=== PATIENT | female | born 1945 | race American Indian/Alaskan Native ===

== ENCOUNTER 2019-06-11 12:25 | Emergency (ER) | payer MEDICARE ==
[2019-06-11 12:43] VITALS: BP 151/79
--- NOTE | 2019-06-11 13:46 | Emergency Department Report ---
ED General Adult HPI - General Chief complaint: Anxiety Stated complaint: ANXIETY ATTACK Time Seen by Provider: 06/11/19 13:34 Source: EMS Mode of arrival: Ambulatory Limitations: No Limitations - History of Present Illness Initial comments: 74-year-old Afro-[place]ian female with past medical history depression taking Lexapro and history of diabetes with oximetry department under the direction of her primary care provider Dr. Caldera. All at her office for routine evaluation she was getting her blood drawn and then the doctor who does not normally during blood was doing so due to a lack of staffing. The process she was fishing around and attempt to draw blood and the patient began to grow lightheaded and states he felt some slight for about 10-12 minutes before returning to normal. Patient reports that her physician is Dr. Mancuso the emergency department evaluation due to history history of anxiety if she is having an upcoming procedure next week in the form of an EGD which she did state she had a little bit of nervousness about. Patient states he feels 100% normal at baseline and does not know why she had, she denies any current chest pain, palpitations, headaches, fever, chills, sweats, abdominal pain, diarrhea, nausea, vomiting. Radiation: non-radiation Severity scale (0 -10): 0 Consistency: now resolved Improves with: none Worsens with: none Associated Symptoms: denies other symptoms Treatments Prior to Arrival: none ED Review of Systems ROS: Stated complaint: ANXIETY ATTACK Other details as noted in HPI Comment: All other systems reviewed and negative ED Past Medical Hx - Past Medical History Previous Medical History?: Yes Hx Hypertension: Yes Hx Diabetes: Yes - Surgical History Past Surgical History?: No - Social History Smoking Status: Never Smoker Substance Use Type: None ED Physical Exam - General Limitations: No Limitations General appearance: alert, in no apparent distress - Head Head exam: Present: atraumatic, normocephalic - Eye Eye exam: Present: normal appearance, PERRL Pupils: Present: normal accommodation - ENT ENT exam: Present: mucous membranes moist - Neck Neck exam: Present: normal inspection. Absent: meningismus, thyromegaly - Respiratory Respiratory exam: Present: normal lung sounds bilaterally. Absent: respiratory distress, wheezes, rales, chest wall tenderness - Cardiovascular Cardiovascular Exam: Present: regular rate, normal rhythm. Absent: irregular rhythm, systolic murmur, diastolic murmur, rubs, gallop - GI/Abdominal GI/Abdominal exam: Present: soft, normal bowel sounds - Extremities Exam Extremities exam: Present: normal inspection - Back Exam Back exam: Present: normal inspection - Neurological Exam Neurological exam: Present: alert, oriented X3 - Psychiatric Psychiatric exam: Present: normal affect, normal mood - Skin Skin exam: Present: warm, dry, intact, normal color. Absent: rash ED Course Vital Signs 06/11/19 12:40 Temperature 98.1 F Pulse Rate 78 Respiratory 16 Rate Blood Pressure 151/79 O2 Sat by Pulse 100 Oximetry ED Medical Decision Making - Medical Decision Making 74 [place]ian female currently asymptomatic presents to the ED for evaluation. Likely vasovagal response to noxious stimuli which is currently resolved. She reports no chest pain, palpitations, nausea vomiting, fever, chills, sweats, presyncope since in the emergency department. Her vital signs are stable and s he is ambulatory under her own power without any shortness of breath or STABLE GAIT. STATES SHE FEELS NORMAL DISCUSSED THE PLAN OF CARE WAS SHE AGREES WITH FEELS COMFORTABLE BEING BEING DISCHARGED. SHE DOES NOT FEEL SHE HAS ANY CURRENT COMPLICATIONS OR ISSUES BUT SHE IS STILL A LITTLE BIT WORRIED ABOUT THE EGD PROVIDED THAT HER MOM WHILE WHILE HAVING AN EGD DONE SOME YEARS AGO Critical care attestation.: If time is entered above; I have spent that time in minutes in the direct care of this critically ill patient, excluding procedure time. ED Disposition Clinical Impression: Normal exam, Anxiety Disposition: DC-01 TO HOME OR SELFCARE Is pt being admited?: No Does the pt Need Aspirin: No Condition: Stable Instructions: Anxiety (ED) Additional Instructions: Overview Vasovagal syncope (also called neurocardiogenic syncope) is a temporary loss of consciousness caused by a neurological reflex that produces either sudden dilation of the blood vessels in the legs, or a very slow heart rate (bradycardia), or both. Vasovagal syncope accounts for more than half of all episodes of syncope. While doctors often refer to it as a "simple fainting spell," the mechanism of vasovagal syncope actually is not all that simple. And misunderstanding how vasovagal syncope works can lead to problems in making the correct diagnosis or in choosing adequate treatment. Causes Vasovagal syncope occurs when something triggers the vasovagal reflex, causing the blood vessels to suddenly dilate. Dilation of the blood vessels causes a significant proportion of the blood volume to pool in the legs. This pooling is often accompanied by a slowing of the heart rate. As a result, the blood pressure will suddenly drop. If the drop in pressure is enough to edil the brain of oxygen, fainting occurs. In most people with vasovagal syncope, the dilation of blood vessels appears to be the predominant factor that causes loss of consciousness. In some people, however, the slowing of the heart rate plays a major role. Common triggers of vasovagal syncope include: Sudden, severe pain Having your blood drawn Being exposed to a traumatic sight or event Extremely difficult urination or defecation A severe coughing spell Hyperventilation Standing motionless for long periods of time Overexerting yourself in hot weather Excessive alcohol or substance use Navigating Heart Failure Heart failure can drastically disrupt your life. But, by paying attention to your symptoms and working carefully with your doctor, you can still live productively. Learn more If a fainting episode follows any of these events, vasovagal syncope is almost certainly the cause. Symptoms While the loss of consciousness with vasovagal syncope can be quite sudden, more characteristically it is preceded by a few seconds or a few minutes of warning symptoms. These symptoms are sometimes referred to as a prodrome of syncope. Those that occur after you are revived are called "postdromal." Prodromal Symptoms These prodromal symptoms of syncope often include: Lightheadedness Ringing or buzzing in the ears Visual disturbances, such as shimmering vision or tunnel vision Sudden sweating. Sudden nausea These prodromal symptoms are followed by a sensation of "graying out," then finally by loss of consciousness. The time between the onset of prodromal symptoms and actually passing out may be a few minutes, or just a second or two. If you feel like youre going to faint, you may be able to abort the episode by lying down with your legs elevated or sitting in a chair with your head between your knees. Wait until you feel better before trying to stand. Syncope Characteristics The syncope itself also has several characteristic features: Vasovagal syncope almost always occurs when the victim is standing, or sitting upright (when blood pooling in the legs can occur), and it virtually never happens while lying down. People who have vasovagal syncope usually regain consciousness after a few seconds, once they have fallen (or, if they're fadi, are helped) to the ground. This is because once on the ground, gravity no longer causes the blood to pool in the legs and the blood pressure improves almost immediately. On the other hand, if the victim is held upright by a well-meaning bystander, the unconsciousness can become very prolonged. This is a potentially dangerous s ituation because as lo Referrals: DIANNE FLOYD NP-C [Referring] - 3-5 Days
== END 2019-06-11 15:27 | disposition home or self-care (01) ==
LOC: ED 12:25
DX: F41.9 Anxiety disorder, unspecified (principal); R42 Dizziness and giddiness; I10 Essential (primary) hypertension; E11.9 Type 2 diabetes mellitus without complications
CPT/HCPCS: 82962

== ENCOUNTER 2021-02-17 11:53 | Observation (INO) | payer MEDICARE ==
[2021-02-17] MEDS ORDERED: DEXTROSE 50% IN WATER (25GM) 50 ML SYRINGE IV ONE (12:21)
--- NOTE | 2021-02-17 12:25 | Emergency Department Report ---
HPI - General Chief Complaint: Hypoglycemia Time Seen by Provider: 02/17/21 12:09 - HPI HPI: 75-year-old female with history of hypertension, hyperlipidemia, CKD, and DM2 on insulin brought in by EMS after she was found to be severely hypoglycemic at home with a blood sugar of 20. The patient's daughter is at the bedside and provides most of the history. She states that for the last 4 days the patient's blood sugar has been running on the low side, in the 60s to 70s. She takes NovoLog and Levemir at night. This morning, however, the patient's blood sugar was measured at 20 and she was severely diaphoretic and confused. She was given some orange juice and part of a banana but 911 was called and her blood sugar per EMS was found to be 32. Other than the low blood sugar, the patient states that her only physical symptom has been generalized weakness and urinary frequency. According to her daughter, she is much less confused and almost at her baseline mental status at this point. Blood sugar measured here in the emergency department was 44. ED Past Medical Hx - Past Medical History Previous Medical History?: Yes Hx Hypertension: Yes Hx Diabetes: Yes - Social History Smoking Status: Never Smoker Substance Use Type: None - Medications Home Medications: Home Medications Medication Instructions Recorded Confirmed Last Taken Type Aspirin [Aspirin BABY CHEW TAB] 81 mg PO QDAY 02/17/21 02/17/21 Unknown History AtorvaSTATin [Lipitor] 40 mg PO QHS 02/17/21 02/17/21 Unknown History Empagliflozin [Jardiance] 10 mg PO QDAY 02/17/21 02/17/21 Unknown History Escitalopram [Lexapro Oral Liqd] 10 mg PO QDAY 02/17/21 02/17/21 Unknown History Ferrous Sulfate [Iron 325 MG] 325 mg PO QDAY 02/17/21 02/17/21 Unknown History Gabapentin [Neurontin] 300 mg PO Q8HR 02/17/21 02/17/21 Unknown History Losartan/Hydrochlorothiazide 1 each PO QDAY 02/17/21 02/17/21 Unknown History [Losartan-Hctz 100-25 mg Tab] Omeprazole 40 mg PO QDAY 02/17/21 02/17/21 Unknown History ED Review of Systems ROS: Stated complaint: LOW BLOOD SUGAR Other details as noted in HPI Constitutional: weakness. denies: chills, fever Eyes: denies: eye pain, vision change ENT: denies: throat pain, congestion Respiratory: denies: cough, shortness of breath Cardiovascular: denies: chest pain, palpitations Endocrine: excessive sweating, increased urine Gastrointestinal: denies: abdominal pain, nausea, vomiting Genitourinary: frequency. denies: dysuria Musculoskeletal: denies: back pain, myalgia Skin: denies: rash Neurological: confusion. denies: headache, weakness, numbness Psychiatric: denies: auditory hallucinations, visual hallucinations Physical Exam - Physical Exam Vital Signs: Vital Signs 02/17/21 12:02 Temperature 97.6 F Pulse Rate 72 Respiratory 18 Rate Blood Pressure 129/70 [Right] O2 Sat by Pulse 98 Oximetry Physical Exam: GENERAL: Well developed and well nourished. No acute distress. Appears slightly confused but is alert and oriented HEENT: Normocephalic. No obvious signs of trauma. dry mucous membranes. EYES: Extraocular movements are intact. Pupils are equal round and reactive to light bilaterally NECK: Supple. Trachea is midline. LUNGS: Nonlabored breathing. Equal chest rise bilaterally. Clear to auscultation bilaterally. HEART/CARDIOVASCULAR: Regular rate and rhythm. No murmurs or rubs. VASCULAR: 2+ peripheral pulses. Cap refill < 2 seconds ABDOMEN: Abdomen is soft and nondistended. There is no significant tenderness, guarding or rebound. SKIN: Skin is warm and dry NEURO: Patient is awake, alert, and oriented. manager operational II-XII grossly intact. No focal deficits. Normal motor and sensory exam throughout. Normal speech. MUSCULOSKELETAL: No obvious deformities. No significant tenderness. Normal ROM throughout. BACK/SPINE: No costovertebral angle tenderness. ED Course Vital Signs 02/17/21 12:02 Temperature 97.6 F Pulse Rate 72 Respiratory 18 Rate Blood Pressure 129/70 [Right] O2 Sat by Pulse 98 Oximetry ED Medical Decision Making - Lab Data Result diagrams: 02/17/21 12:30 02/17/21 12:30 Vital Signs 02/17/21 02/17/21 02/17/21 12:02 12:58 13:00 Temperature 97.6 F Pulse Rate 72 64 61 Respiratory 18 18 17 Rate Blood Pressure Blood Pressure 129/70 [Right] O2 Sat by Pulse 98 97 96 Oximetry 02/17/21 02/17/21 13:16 15:27 Temperature Pulse Rate 61 61 Respiratory 15 18 Rate Blood Pressure 96/72 Blood Pressure 102/66 [Right] O2 Sat by Pulse 98 100 Oximetry Labs 02/17/21 02/17/21 02/17/21 11:59 12:13 12:30 WBC 7.4 RBC 3.95 Hgb 11.4 Hct 35.7 MCV 90 MCH 29 MCHC 32 RDW 15.5 H Plt Count 207 Lymph % (Auto) 13.0 L Vance % (Auto) 7.4 H Eos % (Auto) 1.4 Baso % (Auto) 0.3 Lymph # (Auto) 1.0 L Vance # (Auto) 0.5 Eos # (Auto) 0.1 Baso # (Auto) 0.0 Seg Neutrophils % 77.9 H Seg Neutrophils # 5.7 Sodium Potassium Chloride Carbon Dioxide Anion Gap BUN Creatinine Estimated GFR BUN/Creatinine Ratio Glucose POC Glucose 32 L 44 L Calcium Magnesium Total Bilirubin Direct Bilirubin Indirect Bilirubin AST ALT Alkaline Phosphatase Total Protein Albumin Albumin/Globulin Ratio Urine Color Urine Turbidity Urine pH Ur Specific [place] Urine Protein Urine Glucose (UA) Urine Ketones Urine Blood Urine Nitrite Urine Bilirubin Urine Urobilinogen Ur Leukocyte Esterase Urine WBC (Auto) Urine RBC (Auto) U Epithel Cells (Auto) Urine Mucus 02/17/21 02/17/21 02/17/21 12:30 13:33 15:16 WBC RBC Hgb Hct MCV MCH MCHC RDW Plt Count Lymph % (Auto) Vance % (Auto) Eos % (Auto) Baso % (Auto) Lymph # (Auto) Vance # (Auto) Eos # (Auto) Baso # (Auto) Seg Neutrophils % Seg Neutrophils # Sodium 144 Potassium 5.4 H Chloride 106.9 Carbon Dioxide 24 Anion Gap 19 BUN 54 H Creatinine 2.3 H Estimated GFR 25 BUN/Creatinine Ratio 23 Glucose 68 POC Glucose 140 H 174 H Calcium 9.5 Magnesium 2.20 Total Bilirubin 0.30 Direct Bilirubin < 0.2 Indirect Bilirubin 0.1 AST 21 ALT 16 Alkaline Phosphatase 71 Total Protein 7.4 Albumin 4.1 Albumin/Globulin Ratio 1.2 Urine Color Urine Turbidity Urine pH Ur Specific [place] Urine Protein Urine Glucose (UA) Urine Ketones Urine Blood Urine Nitrite Urine Bilirubin Urine Urobilinogen Ur Leukocyte Esterase Urine WBC (Auto) Urine RBC (Auto) U Epithel Cells (Auto) Urine Mucus 02/17/21 Unknown WBC RBC Hgb Hct MCV MCH MCHC RDW Plt Count Lymph % (Auto) Vance % (Auto) Eos % (Auto) Baso % (Auto) Lymph # (Auto) Vance # (Auto) Eos # (Auto) Baso # (Auto) Seg Neutrophils % Seg Neutrophils # Sodium Potassium Chloride Carbon Dioxide Anion Gap BUN Creatinine Estimated GFR BUN/Creatinine Ratio Glucose POC Glucose Calcium Magnesium Total Bilirubin Direct Bilirubin Indirect Bilirubin AST ALT Alkaline Phosphatase Total Protein Albumin Albumin/Globulin Ratio Urine Color Straw Urine Turbidity Clear Urine pH 5.0 Ur Specific [place] 1.008 Urine Protein <15 mg/dl Urine Glucose (UA) >=500 Urine Ketones Neg Urine Blood Neg Urine Nitrite Neg Urine Bilirubin Neg Urine Urobilinogen < 2.0 Ur Leukocyte Esterase Neg Urine WBC (Auto) 2.0 Urine RBC (Auto) 2.0 U Epithel Cells (Auto) 1.0 Urine Mucus Few - EKG Data -: EKG Interpreted by Ri - EKG Data 02/17/21 17:13 Normal sinus rhythm. Normal axis. Normal intervals. No ectopy. No si gnificant ST segment or T wave abnormalities. - Radiology Data CHEST 1 VIEW 02/17/2021 12:24 PM INDICATION / CLINICAL INFORMATION: hypoglycemia. COMPARISON: None available. FINDINGS: SUPPORT DEVICES: None. HEART / MEDIASTINUM: No significant abnormality. LUNGS / PLEURA: Low lung volumes with crowding of the bronchovascular markings. No convincing evidence of acute pulmonary parenchymal or pleural abnormality. No pneumothorax. ADDITIONAL FINDINGS: No significant additional findings. IMPRESSION: 1. Low lung volumes without acute findings. Signer Name: Cuco Quintana MD Signed: 02/17/2021 1:44 PM Workstation Name: [id number] - Medical Decision Making 75-year-old female with history of CKD, hypertension, and DM2 on insulin brought in for severe hypoglycemia. Patient's blood sugar was 20 at home with diaphoresis and confusion. It was 32 for EMS. Patient has been having low blood sugars in the 60s to 70s for the past few days. She is also felt weak and had some urinary frequency. She takes 100 units 3 times daily of NovoLog and Levemir at night. Her blood sugar here in the emergency department is 44. We will give 1 amp of D50 and if hypoglycemia is persistent will initiate D5 or D10 drip at that time. We will send a full set of labs and chest x-ray and continue to monitor blood sugar closely. Labs reviewed and reveal no significant leukocytosis or anemia. Patient's potassium is slightly elevated at 5.4. Her most recent Accu-Chek was 140. We will continue to monitor closely and follow-up pending studies. Patient's urinalysis shows no evidence of infection. There is greater than 500 of glucose in her urine which is consistent with the patient taking Jardiance. There is no anion gap to suggest euglycemic/hypoglycemic DKA. On repeat assessment again at 3:29 PM, the patient is resting comfortably in the bed. She states that she feels much better than she did earlier. Her most recent blood sugar was 174 at 3:20 PM. Nonetheless, given the history of ongoing hypoglycemia for the last few days and use of long-acting insulin, I discussed the case with the on-call hospitalist, Dr. Rojas who will admit the patient for further monitoring and management. All of this was discussed with the patient who expressed understanding and agreement with this plan of care. Critical care attestation.: If time is entered above; I have spent that time in minutes in the direct care of this critically ill patient, excluding procedure time. ED Disposition Clinical Impression: Hypoglycemia associated with type 2 diabetes mellitus, Chronic kidney disease (CKD), Altered mental state Disposition: DC-09 OP ADMIT IP TO THIS HOSP Is pt being admited?: Yes Condition: Stable Instructions: Diabetes Mellitus Type 2 in Adults (ED) Referrals: PRIMARY CARE, [Primary Care Provider] - 3-5 Days
[2021-02-17 12:49] LABS: Basophils % (Auto) 0.3 % (0.0-1.8); Eosinophils # (Auto) 0.1 K/mm3 (0.0-0.4); Eosinophils % (Auto) 1.4 % (0.0-4.3); Hematocrit 35.7 % (30.3-42.9); Hemoglobin 11.4 gm/dl (10.1-14.3); Mean Corpuscular HGB Conc 32 % (30-34); Mean Corpuscular Volume 90 fl (79-97); Monocytes # (Auto) 0.5 K/mm3 (0.0-0.8); Monocytes % (Auto) 7.4 % (0.0-7.3); Platelet Count 207 K/mm3 (140-440); Red Blood Count 3.95 M/mm3 (3.65-5.03); Red Cell Distribution Width 15.5 % (13.2-15.2)
[2021-02-17] MEDS ORDERED: D5W/0.45% NACL 1,000 ML IV SCH (13:00)
[2021-02-17 13:17] LABS: Alanine Aminotransferase 16 units/L (7-56); Albumin 4.1 g/dL (3.9-5); BUN/Creatinine Ratio 23; Bilirubin,Direct < 0.2 mg/dL (0-0.2); Blood Urea Nitrogen 54 mg/dL (7-17); Calcium 9.5 mg/dL (8.4-10.2); Hemolysis Index 2
[2021-02-17 14:05] LABS: Bilirubin,Urine NEG (Negative); Blood,Urine NEG (Negative); Color,Urine Straw (Yellow); Mucus,Urine FEW /HPF; Protein,Urine <15 mg/dL mg/dL (Negative); Urobilinogen,Urine < 2.0 mg/dL (<2.0)
--- NOTE | 2021-02-17 14:49 | XRay Report ---
CHEST 1 VIEW 02/17/2021 12:24 PM INDICATION / CLINICAL INFORMATION: hypoglycemia. COMPARISON: None available. FINDINGS: SUPPORT DEVICES: None. HEART / MEDIASTINUM: No significant abnormality. LUNGS / PLEURA: Low lung volumes with crowding of the bronchovascular markings. No convincing evidenc e of acute pulmonary parenchymal or pleural abnormality. No pneumothorax. ADDITIONAL FINDINGS: No significant additional findings. IMPRESSION: 1. Low lung volumes without acute findings. Signer Name: Cuco Quintana MD Signed: 02/17/2021 2:44 PM Workstation Name: [id number]
[2021-02-17] MEDS ORDERED: ACETAMINOPHEN 325 MG TAB PO PRN (15:26)
[2021-02-17] MEDS ORDERED: ONDANSETRON 4 MG/2 ML INJ IV PRN (15:26)
--- NOTE | 2021-02-17 15:26 | History and Physical Report ---
History of Present Illness Chief complaint: She is confused and her blood glucose is really low History of present illness: 75 YO Female with HTN, HLD, DM, CKD, Vascular Dementia, Cerebral Atherosclerosis presents to ED for evaluation. Pt has diminished cognition and is unable to provide detailed history at the time of the evaluation. Pt daughter is at bedside and provides history. Pt daughter states that the patient was found to be confused today. The patient was found to have a serum glucose in the 20s and was subsequently transported to [facility] via private vehicle for further care and evaluation of the aforementioned symptoms. The patient was seen and evaluated in the emergency department. All lab and imaging studies reviewed. The patient was found to have metabolic encephalopathy, volume depletion, SHERITA with ATN, as well as persistent hypoglycemia. The patient was treated with dextrose and IV fluid resuscitation and subsequently placed in observation status and admitted to the medical floor due to increased risk of worsening symptoms. No further history is obtainable. The patient has diminished cognition but has a positive gag reflex and is able to protect her airway without difficulty. No prior admission for review. All medication listed at time of admission has been reconciled. Advanced care planning conducted in ED. Past History Past Medical History: diabetes, hypertension, hyperlipidemia, renal failure Past Surgical History: No surgical history, Other (reviewed) Social history: . denies: smoking, alcohol abuse, prescription drug abuse Family history: diabetes, hypertension Medications and Allergies Allergies Allergy/AdvReac Type Severity Reaction Status Date / Time No Known Allergies Allergy Unverified 02/17/21 12:01 Home Medications Medication Instructions Recorded Confirmed Last Taken Type Aspirin [Aspirin BABY CHEW TAB] 81 mg PO QDAY 02/17/21 02/17/21 Unknown History AtorvaSTATin [Lipitor] 40 mg PO QHS 02/17/21 02/17/21 Unknown History Empagliflozin [Jardiance] 10 mg PO QDAY 02/17/21 02/17/21 Unknown History Escitalopram [Lexapro Oral Liqd] 10 mg PO QDAY 02/17/21 02/17/21 Unknown History Ferrous Sulfate [Iron 325 MG] 325 mg PO QDAY 02/17/21 02/17/21 Unknown History Gabapentin [Neurontin] 300 mg PO Q8HR 02/17/21 02/17/21 Unknown History Losartan/Hydrochlorothiazide 1 each PO QDAY 02/17/21 02/17/21 Unknown History [Losartan-Hctz 100-25 mg Tab] Omeprazole 40 mg PO QDAY 02/17/21 02/17/21 Unknown History Active Meds: Active Medications Dextrose/Sodium Chloride (D5/0.45ns) 1,000 mls @ 250 mls/hr IV DIRECT VIDHI Review of Systems Constitutional: no weight loss, no weight gain Ears, nose, mouth and throat: no ear pain, no ear discharge, no decreased hearing, no nose pain, no nasal congestion Breasts: no change in shape, no swelling, no mass Cardiovascular: no chest pain, no palpitations, no rapid/irregular heart beat, no edema, no syncope Respiratory: no cough, no cough with sputum, no hemoptysis, no shortness of breath, no dyspnea on exertion Gastrointestinal: no nausea, no diarrhea, no change in bowel habits, no hematemesis Genitourinary Female: no pelvic pain, no flank pain, no dysuria, no urinary frequency, no urgency Rectal: no pain, no incontinence, no bleeding Musculoskeletal: no neck stiffness, no shooting arm pain, no arm numbness/tingli ng, no low back pain, no leg numbness/tingling Integumentary: no rash, no pruritis, no redness, no sores, no wounds, no jaundice Neurological: no head injury, no transient paralysis, no paralysis, no weakness, no seizures Psychiatric: no anxiety, no sleep disturbances, no insomnia, no change in appetite, no change in libido Endocrine: no cold intolerance, no polyphagia, no excessive thirst, no kalie ydipsia, no polyuria, no nocturia Hematologic/Lymphatic: no easy bruising, no lymphadenopathy Allergic/Immunologic: no allergic rhinitis, no wheezing, no persistent infections, no angioedema Exam - Constitutional Vitals: Temp Pulse Resp BP Pulse Ox 97.6 F 72 18 129/70 98 02/17/21 12:02 02/17/21 12:02 02/17/21 12:02 02/17/21 12:02 02/17/21 12:02 General appearance: Present: mild distress - EENT Eyes: Present: PERRL ENT: clear oral mucosa, hearing decreased - Neck Neck: Present: supple, normal ROM - Respiratory Respiratory effort: normal Respiratory: bilateral: CTA - Cardiovascular Heart Sounds: Present: S1 & S2. Absent: rub, click - Extremities Extremities: pulses symmetrical, No edema Peripheral Pulses: within normal limits - Abdominal General gastrointestinal: Present: soft, non-tender, non-distended, normal bowel sounds Female genitourinary: Present: normal - Integumentary Integumentary: Present: clear, warm, dry - Musculoskeletal Musculoskeletal: gait normal, strength equal bilaterally - Psychiatric Psychiatric: appropriate mood/affect, intact judgment & insight - Neurologic Neurologic: CNII-XII intact, moves all extremities Results - Labs CBC & Chem 7: 02/17/21 12:30 02/17/21 12:30 Labs: Abnormal lab results 02/17/21 02/17/21 02/17/21 Range/Units 11:59 12:13 12:30 RDW 15.5 H (13.2-15.2) % Lymph % (Auto) 13.0 L (13.4-35.0) % [place] % (Auto) 7.4 H (0.0-7.3) % Lymph # (Auto) 1.0 L (1.2-5.4) K/mm3 Seg Neutrophils % 77.9 H (40.0-70.0) % Potassium (3.6-5.0) mmol/L BUN (7-17) mg/dL Creatinine (0.6-1.2) mg/dL POC Glucose 32 L 44 L (70-105) mg/dL 02/17/21 02/17/21 02/17/21 Range/Units 12:30 13:33 15:16 RDW (13.2-15.2) % Lymph % (Auto) (13.4-35.0) % [place] % (Auto) (0.0-7.3) % Lymph # (Auto) (1.2-5.4) K/mm3 Seg Neutrophils % (40.0-70.0) % Potassium 5.4 H (3.6-5.0) mmol/L BUN 54 H (7-17) mg/dL Creatinine 2.3 H (0.6-1.2) mg/dL POC Glucose 140 H 174 H (70-105) mg/dL Assessment and Plan - Patient Problems (1) Metabolic encephalopathy Current Visit: Yes Status: Acute Plan to address problem: IV fluid resuscitation therapy, neuro check, supportive care. (2) Hypoglycemia Current Visit: Yes Status: Acute Plan to address problem: Dextrose administration, Accu-Chek, hypoglycemia protocol (3) Insulin overdose Current Visit: Yes Status: Acute Qualifiers: Encounter type: initial encounter Plan to address problem: Hypoglycemia protocol, Hold insulin, low dose sliding scale insulin ac/hs. (4) Chronic kidney disease (CKD) Current Visit: Yes Status: Acute Plan to address problem: IV fluid resuscitation therapy, monitor urine output every shift, outpatient nephrology follow-up. (5) DVT prophylaxis Current Visit: Yes Status: Acute Plan to address problem: SCD to bilateral lower extremities while in bed, patient is ambulatory (6) Advance care planning Current Visit: Yes Status: Acute Plan to address problem: Disease education conducted, care plan discussed, diagnosis discussed, prognosis discussed, patient is full code, patient daughter knowledges understanding and agreement with care plan, +30 minutes.
[2021-02-17] MEDS ORDERED: DEXTROSE 50% IN WATER (25GM) 50 ML SYRINGE IV PRN (15:30)
[2021-02-17] MEDS ORDERED: SODIUM CHLORIDE 0.9% 1000 ML 1,000 ML IV SCH (15:45)
[2021-02-17] MEDS: INSULIN REGULAR, HUMAN 100 UNITS/1 ML SUB-Q SCH ×2 (18:03→22:35)
[2021-02-17] MEDS ORDERED: MORPHINE 2 MG/1 ML INJ ONE (20:03)
[2021-02-17] MEDS ORDERED: MORPHINE 2 MG/1 ML INJ IV ONE (20:06)
[2021-02-18] MEDS: INSULIN REGULAR, HUMAN 100 UNITS/1 ML SUB-Q SCH ×2 (08:27→12:28)
[2021-02-18 08:35] LABS: Calcium 9.2 mg/dL (8.4-10.2)
--- NOTE | 2021-02-18 09:05 | Discharge Summary ---
Providers - Providers Date of Admission: 02/17/21 18:10 Attending physician: ARLYN MUNGUIA MD Primary care physician: [employer] [facility] Hospitalization Reason for admission: Altered mental status Condition: Stable Hospital course: 75 YO Female with HTN, HLD, DM, CKD, Vascular Dementia, Cerebral Atherosclerosis presents to ED for evaluation. Pt has diminished cognition and is unable to provide detailed history at the time of the evaluation. Pt daughter is at bedside and provides history. Pt daughter states that the patient was found to be confused today. The patient was found to have a serum glucose in the 20s and was subsequently transported to [facility] via private vehicle for further care and evaluation of the aforementioned symptoms. The patient was seen and evaluated in the emergency department. All lab and imaging studies reviewed. The patient was found to have metabolic encephalopathy, volume depletion, SHERITA with ATN, as well as persistent hypoglycemia. The patient was treated with dextrose and IV fluid resuscitation and subsequently placed in observation status and admitted to the medical floor due to increased risk of worsening symptoms. No further h istory is obtainable. The patient has diminished cognition but has a positive gag reflex and is able to protect her airway without difficulty. No prior admission for review. All medication listed at time of admission has been reconciled. Advanced care planning conducted in ED. 02/18 mental status improved we joke about my name oriented x3 knows what happened at home that she took her meds without food and her daughter gave her orange juice and something else to help improve BG but did not work CT of the head showed microvascular changes but no acute pathology noted. I did speak with the daughter and explained concerns recommendation to her. Patient can be discharged to follow-up outpatient with her primary care doctor. With hydration patient renal function has also improved. (1) Metabolic encephalopathy secondary to hypoglycemia (2) Hypoglycemia (3) Insulin overdose, diabetes mellitus (4) acute kidney injury chronic kidney disease (CKD) secondary to vasomotor nephropathy Disposition: TO HOME OR SELFCARE Final Discharge Diagnosis (Prints w/discharge instructions): Metabolic encephalopathy acute secondary to hypoglycemia Time spent for discharge: 35 mins Core Measure Documentation - Palliative Care Palliative Care/ Comfort Measures: Not Applicable - Core Measures Any of the following diagnoses?: none Exam - Physical Exam Narrative exam: VITAL SIGNS: Reviewed. GENERAL: The patient appears normally developed, Vital signs as documented. HEAD: No signs of head trauma. EYES: Pupils are equal. Extraocular motions intact. EARS: Hearing grossly intact. MOUTH: Oropharynx is normal. NECK: No adenopathy, no JVD. CHEST: Chest with clear breath sounds bilaterally. No wheezes, rales, or rhonchi. CARDIAC: Regular rate and rhythm. S1 and S2, without murmurs, gallops, or rubs. VASCULAR: No Edema. Peripheral pulses normal and equal in all extremities. ABDOMEN: Soft, non tender and non distended. No rebound or guarding, and no masses palpated. Bowel Sounds normal. MUSCULOSKELETAL: Good range of motion of all major joints. Extremities without clubbing, cyanosis or edema. NEUROLOGIC EXAM: Alert and oriented x 3 No focal sensory or strength deficits. Speech normal. Follows commands. PSYCHIATRIC: Mood normal. SKIN: detail exam as documented in skin assessment - Constitutional Vitals: Temp Pulse Resp BP Pulse Ox 98.2 F 70 18 114/57 98 02/18/21 04:45 02/18/21 04:45 02/18/21 04:45 02/18/21 04:45 02/18/21 04:45 Plan Activity: advance as tolerated, fall precautions Diet: diabetic Special Instructions: record daily weights, record daily BP diary, record blood sugar diary Plan of Treatment: please cut DM mediations in half. Encourage to eat with meds. Keep a glucose diary Repeat renal function test in 2 to 3 days Follow up with: PRIMARY CARE, [Primary Care Provider] - 3-5 Days Prescriptions: lisinopriL [Lisinopril] 10 mg PO DAILY #30 tablet
[2021-02-18] MEDS ORDERED: ESCITALOPRAM 10 MG/10 ML ORAL LIQD PO SCH (10:00)
[2021-02-18] MEDS ORDERED: FERROUS SULFATE 325 MG TAB PO SCH (10:00)
[2021-02-18] MEDS ORDERED: ASPIRIN 81 MG TAB CHEW PO SCH (10:00)
--- NOTE | 2021-02-18 10:35 | Cat Scan Report ---
CT head/brain wo con INDICATION / CLINICAL INFORMATION: 75 years Female; ams. TECHNIQUE: Routine CT head without contrast. All CT scans at this location are performed using CT dos e reduction for ALARA by means of automated exposure control. COMPARISON: None. FINDINGS: BRAIN / INTRACRANIAL CONTENTS: There is extensive cerebral white matter disease most consistent with microvascular angiopathy. This mild cerebral atrophy with associated prominence of the ventricular sy stem. There are incidental foci of calcification along the falx and anterior dura. There is no clear CT evidence of acute intracranial hemorrhage or significant mass effect. ORBITS: No significant abnormality of visualized orbits. SINUSES / MASTOIDS: No significant abnormality in the visualized paranasal sinuses or mastoid air genevieve ls. CRANIOCERVICAL JUNCTION: No significant abnormality. ADDITIONAL FINDINGS: None. IMPRESSION: 1. There is extensive microvascular angiopathy without clear CT evidence of acute intracranial hemorr richardson. Signer Name: Clayton Rojas MD Signed: 02/18/2021 10:30 AM Workstation Name: [id number]
[2021-02-18 13:40] VITALS: BP 135/75
[2021-02-18] MEDS ORDERED: GABAPENTIN 300 MG CAP PO SCH (14:00)
--- NOTE | 2021-02-22 12:53 | Electrocardiograph Report ---
[facility] Test Date: 2021-02-17 Test Time: 17:07:14 Pat Name: LELAND MARTINEZ Department: Room: A384 1 Gender: F Healthcare Management: TASIA : 1945 Requested By: YESENIA HOFFMAN Order Number: [id number] Reading MD: Taco Monteiro Measurements Intervals [place] Rate: 66 P: 80 WI: 199 QRS: 38 QRSD: 66 T: 59 QT: 425 QTc: 446 Interpretive Statements Sinus rhythm Low voltage, precordial leads No previous ECG available for comparison Electronically Signed On 02-22-2021 12:53:08 EDT by Taco Monteiro
== END 2021-02-18 15:38 | disposition home or self-care (01) ==
LOC: ED 11:53 → INTOOBSV 18:10 → 3A 18:10
PROVIDERS: ADMIT Internal Medicine; ATTEND Internal Medicine
DX: T38.3X4A Poisoning by insulin and oral hypoglycemic [antidiabetic] drugs, undetermined, initial encounter (principal); G93.41 Metabolic encephalopathy; E11.649 Type 2 diabetes mellitus with hypoglycemia without coma; N17.9 Acute kidney failure, unspecified; N18.9 Chronic kidney disease, unspecified; E78.5 Hyperlipidemia, unspecified; F03.90 Unspecified dementia, unspecified severity, without behavioral disturbance, psychotic disturbance, mood disturbance, and anxiety; Z79.82 Long term (current) use of aspirin
CPT/HCPCS: 36415; 70450; 71045; 80048; 80076; 81001; 82962; 83735; 85025; 93005; 96361; 96374; 99285; G0378; J7030; J1815; J2270